=== PATIENT | female | born 2000 | race Caucasian/White ===

== ENCOUNTER 2018-02-11 12:25 | Emergency (ER) | payer BC ==
--- NOTE | 2018-02-11 15:02 | ED ---
HPI Chest Pain - HPI Summary HPI Summary: The pt is a 18 y/o F presenting to the ED with a chief complaint of pain near her collarbone onset about 1-2 months ago. It has progressed over time such that she feels it in her breasts. It is usually an achey pain, the location is unpredictable. When it comes on, it is usually around a 5. Pt reports mild constipation. - History of Current Complaint Chief Complaint: EDChestWallPain Time Seen by Provider: 02/11/18 14:49 Hx Obtained From: Patient Hx Last Menstrual Period: 01/15/2018 Onset/Duration: Started Weeks Ago, Still Present Timing: Intermittent Initial Severity: Moderate Current Severity: Mild Pain Intensity: 3 Pain Scale Used: 0-10 Numeric Chest Pain Location: Diffuse Chest Pain Radiates: Yes Chest Pain Radiates To:: Epigastric Character: Dull/Aching Aggravating Factor(s): Nothing Alleviating Factor(s): Nothing Associated Signs and Symptoms: Positive: Chest Pain, Back Pain - Allergy/Home Medications Allergies/Adverse Reactions: Allergies Allergy/AdvReac Type Severity Reaction Status Date / Time No Known Allergies Allergy Verified 02/11/18 12:39 PMH/Surg Hx/FS Hx/Imm Hx Previously Healthy: Yes Endocrine/Hematology History: Denies: Hx Diabetes Cardiovascular History: Denies: Hx Hypertension Musculoskeletal History: Reports: Hx Scoliosis Infectious Disease History: No Infectious Disease History: Denies: Traveled Outside the [place] in Last 30 Days - Family History Known Family History: Negative: Cardiac Disease, Hypertension, Diabetes - Social History Occupation: Student Lives: Dormitory/Roommates Alcohol Use: None Substance Use Type: Reports: None Hx Tobacco Use: No Smoking Status (MU): Never Smoked Tobacco Review of Systems Negative: Fever Positive: Chest Pain Positive: Myalgia - mild back pain All Other Systems Reviewed And Are Negative: Yes Physical Exam - Summary Physical Exam Summary: VITAL SIGNS: Reviewed. GENERAL: Patient is a well-developed and nourished female who is lying comfortable in the stretcher. Patient is not in any acute respiratory distress. HEAD AND FACE: No signs of trauma. No ecchymosis, hematomas or skull depressions. No sinus tenderness. EYES: PERRLA, EOMI x 2, No injected conjunctiva, no nystagmus. EARS: Hearing grossly intact. Ear canals and tympanic membranes are within normal limits. MOUTH: Oropharynx within normal limits. NECK: Supple, trachea is midline, no adenopathy, no JVD, no carotid bruit, no c- spine tenderness, neck with full ROM. CHEST: Symmetric, mild right chest tenderness closer to shoulder LUNGS: Clear to auscultation bilaterally. No wheezing or crackles. CVS: Regular rate and rhythm, S1 and S2 present, no murmurs or gallops appreciated. ABDOMEN: Soft, non-tender. No signs of distention. No rebound no guarding, and no masses palpated. Bowel sounds are normal. EXTREMITIES: FROM in all major joints, no edema, no cyanosis or clubbing. NEURO: Alert and oriented x 3. No acute neurological deficits. Speech is normal and follows commands. SKIN: Dry and warm Triage Information Reviewed: Yes Vital Signs On Initial Exam: Initial Vitals Temp Pulse Resp BP Pulse Ox 99.6 F 75 14 125/76 100 02/11/18 12:39 02/11/18 12:39 02/11/18 12:39 02/11/18 12:39 02/11/18 12:39 Vital Signs Reviewed: Yes Diagnostics - Vital Signs Vital Signs Temp Pulse Resp BP Pulse Ox 02/11/18 14:28 98.9 F 76 16 127/79 100 02/11/18 12:39 99.6 F 75 14 125/76 100 - Laboratory Result Diagrams: 02/11/18 15:14 02/11/18 15:14 Lab Statement: Any lab studies that have been ordered have been reviewed, and results considered in the medical decision making process. - Radiology CXR Radiology Interpretation Completed By: Radiologist Summary of Radiographic Findings: NO EVIDENCE FOR ACTIVE CARDIOPULMONARY DISEASE. ED physician has reviewed this report. - EKG 1519 Cardiac Rate: NL - 75bpm EKG Rhythm: Sinus Rhythm ST Segment: Normal Ectopy: None Chest Pain Course/Dx - Course Assessment/Plan: The pt is a 18 y/o F presenting to the ED with a chief complaint of pain near her collarbone onset about 1-2 months ago. It has progressed over time such that she feels it in her breasts. It is usually an achy pain, the location is unpredictable. When it comes on, it is usually around a 5. Pt reports mild constipation. Blood test results without any significant abnormality except for glucose of 103, d-dimer is negative therefore no pulmonary emboli. Chest x-ray impression: No evidence for active cardiopulmonary disease. In the ED course the patient was given Toradol for the pain and her symptoms have significantly improved. I discussed all the findings and test results with the patient. Patient was instructed to return to the emergency room immediately if any of the symptoms return or worsens. Plan of care was discussed with the patient and understands and agrees. All questions were answered at patient satisfaction. There were no further complaints or concerns. Lung exam before discharge: CTA B/L. Good air exchange. No wheezing or crackles heard. CVS: S1 and S2 present. No murmurs appreciated. Patient is alert and oriented x 3. Patient is hemodynamically stable. Patient will be discharged home with follow up PCP in the next 2-3 days - Diagnoses Provider Diagnoses: Atypical chest pain Discharge - Sign-Out/Discharge Documenting (check all that apply): Patient Departure - Discharge Plan Condition: Stable Disposition: HOME Prescriptions: Naproxen TAB* [Naprosyn 250 mg TAB*] 500 mg PO BID PRN #20 tab PRN Reason: Pain Referrals: [facility] - [facility]Adolfo [Primary Care Provider] - - Billing Disposition and Condition Condition: STABLE Disposition: Home - Attestation Statements Document Initiated by Scribe: Yes Documenting Scribe: Milly Salas Provider For Whom Carole is Documenting (Include Credential): Ajit Hernandez MD. Scribe Attestation: Milly Desouza, aceed for Ajit Hernandez MD. on 02/12/18 at 0740. Scribe Documentation Reviewed: Yes Provider Attestation: The documentation as recorded by the Milly koch accurately reflects the service I personally performed and the decisions made by , Ajit Hernandez MD. Status of Scribe Document: Viewed
[2018-02-11] MEDS ORDERED: Ketorolac INJ* 30 MG/ML 1 ML VIAL IV PUSH ONE (15:03)
[2018-02-11 15:26] LABS: ABS Basophils 0 10^3/ul (0-0.2); ABS Eosinophils 0 10^3/ul (0-0.6); ABS Lymphocytes 1.7 10^3/ul (1.0-4.8); ABS Monocytes 0.4 10^3/ul (0-0.8); ABS Neutrophils 4.6 10^3/ul (1.5-7.7); ABS Nucleated RBC 0 10^3/ul; Eosinophil % 0.3 %; Hematocrit 40 % (35-47); Hemoglobin 13.6 g/dl (12.0-16.0); Lymphocyte % 25.5 %; Mean Corpuscular HGB Conc 34 g/dl (31-36); Mean Corpuscular Hemoglobin 30 pg (27-31); Mean Corpuscular Volume 90 fL (80-97); Mean Platelet Volume 8.3 fL (7.4-10.4); Nucleated Red Blood Cells % 0.1; Platelet Count 166 10^3/ul (150-450); Red Blood Count 4.47 10^6/ul (4.00-5.40); Red Cell Distribution Width 13 % (10.5-15); White Blood Count 6.8 10^3/ul (3.5-10.8)
[2018-02-11 15:44] LABS: EGFR Non-African American 98.5 (>60)
[2018-02-11 17:06] VITALS: BP 119/87
== END 2018-02-11 17:12 | disposition home or self-care (01) ==
LOC: ED 12:25
DX: R07.89 Other chest pain (principal)
CPT/HCPCS: 36415; 71046; 80053; 82550; 83605; 84443; 84484; 84702; 85025; 85379; 93005; 96374; 99283; J1885